=== PATIENT | male | born 1965 | race Native Hawaiian/Other Pacific Islander ===

== ENCOUNTER 2019-12-23 16:39 | Emergency (ER) | payer OTHER ==
[~2019-12-23] VITALS: Ht 180.3 cm; Wt 90.7 kg
[2019-12-23 16:45] VITALS: TEMP 98.6
[2019-12-23] MEDS ORDERED: TAMS0.4C PO (17:02)
[2019-12-23 17:16] LABS: PLATELET COUNT 208 K/uL (142-355)
[2019-12-23 17:31] LABS: PARTIAL THROMBOPLASTIN TIME 22.5 SECONDS (24.5-33.6)
[2019-12-23 17:33] LABS: POTASSIUM 4.4 mmol/L (3.6-5.2); SODIUM 137 mmol/L (136-145)
[2019-12-23 18:36] VITALS: BP 98/60
== END 2019-12-23 18:36 ==
LOC: ED 16:39
PROVIDERS: Hospitalist
DX: E86.0 Dehydration (principal); R55 Syncope and collapse; R11.2 Nausea with vomiting, unspecified
CPT/HCPCS: 36415; 80053; 80320; 82550; 83880; 84484; 85027; 85610; 85730; 93005; 96360; 99284